=== PATIENT | female | born 1990 | race Caucasian/White ===

== ENCOUNTER → 2017-09-03 | Emergency (ER) | payer OTHER ==
[~2017-09-03] VITALS: Ht 157.5 cm; Wt 72.6 kg
== END | disposition home or self-care (01) ==
LOC: ER 10:49
DX: B34.9 Viral infection, unspecified (principal)

== ENCOUNTER 2020-02-16 14:59 | Emergency (ER) | payer OTHER ==
[~2020-02-16] VITALS: Ht 157.5 cm; Wt 77.1 kg
== END 2020-02-16 18:45 | disposition home or self-care (01) ==
LOC: ER 14:59
DX: R10.84 Generalized abdominal pain (principal)

== ENCOUNTER 2021-04-29 13:05 | Outpatient (CLI) | payer OTHER | END 2021-04-29 13:16 | disposition home or self-care (01) | LOC: SONOGRAMA 13:05 | PROVIDERS: ATTEND Internal Medicine | DX: D28.0 Benign neoplasm of vulva (principal); R10.84 Generalized abdominal pain; E03.8 Other specified hypothyroidism; E55.9 Vitamin D deficiency, unspecified; F41.1 Generalized anxiety disorder ==

== ENCOUNTER → 2021-07-21 | Outpatient (CLI) | payer OTHER | END | disposition home or self-care (01) | LOC: SONOGRAMA 13:42 | PROVIDERS: ATTEND Internal Medicine | DX: E03.8 Other specified hypothyroidism (principal); E55.9 Vitamin D deficiency, unspecified; F41.1 Generalized anxiety disorder; Z13.1 Encounter for screening for diabetes mellitus; R10.84 Generalized abdominal pain; Z13.89 Encounter for screening for other disorder ==

== ENCOUNTER 2022-04-02 05:34 | Inpatient (IN) | payer OTHER ==
[~2022-04-02] VITALS: Ht 157.5 cm; Wt 81.6 kg
--- NOTE | 2022-04-02 05:47 | NUR ---
PTE REFIERE QUE TIENE ALGO ATORADO EN LA [place] [facility] LAS 8 PM.
--- NOTE | 2022-04-02 08:22 | NUR ---
PTE VERBALIZA NO QUERER SER EVALUADO POR DR CARREONA DE [facility] Y QUE SE VA A RETIRAR DE LA WILLIE.
--- NOTE | 2022-04-02 08:35 | NUR ---
PTE ES EVALUADO POR DR SOLIS. SE EJECUTA ORDEN MEDICA EN HUSSEIN TOTALIDAD. PENDIENTE A RESULTADOS DE JAME X Y RE EVALUACION MEDICA.
== END 2022-04-03 11:04 | disposition home or self-care (01) | DRG 395 ==
LOC: ER 05:34 → SEC-K 14:06 → MEDJ 19:33
PROVIDERS: ADMIT Internal Medicine; ATTEND Internal Medicine
PROC: 0D758ZZ Dilation of Esophagus, Via Natural or Artificial Opening Endoscopic (ICD-10-PCS; principal; 2022-04-02)
PROC: 0DC58ZZ Extirpation of Matter from Esophagus, Via Natural or Artificial Opening Endoscopic (ICD-10-PCS; 2022-04-02)
DX: T18.128A Food in esophagus causing other injury, initial encounter (principal); K20.0 Eosinophilic esophagitis; R13.10 Dysphagia, unspecified; Z20.822 Contact with and (suspected) exposure to COVID-19